=== PATIENT | male | born 1950 | race Two or more races ===

== ENCOUNTER 2018-10-13 07:18 | Outpatient (CLI) | payer OTHER | END 2018-10-13 08:52 | disposition home or self-care (01) | LOC: TOM 07:18 | DX: R10.9 Unspecified abdominal pain (principal) ==

== ENCOUNTER 2019-04-06 08:19 | Outpatient (CLI) | payer OTHER | END 2019-04-06 08:24 | disposition home or self-care (01) | LOC: RAD 08:19 | DX: M54.5 Low back pain (principal); M54.16 Radiculopathy, lumbar region ==